=== PATIENT | male | born 1930 | race Caucasian/White ===

== ENCOUNTER 2017-09-24 07:32 | Emergency (ER) | payer MEDICARE ==
[~2017-09-24] VITALS: Ht 182.9 cm; Wt 86.0 kg
[~2017-09-24 07:32] MED LIST: AMIODARONE; ASPIRIN; PLAVIX; [UNRECOGNIZED DRUG - OTHER]
[2017-09-24] MEDS ORDERED: BICA50TA2 PO (07:43)
[2017-09-24] MEDS ORDERED: SOTA80TA PO (07:43)
[2017-09-24] MEDS ORDERED: RAMI2.5C6 PO (07:43)
[2017-09-24] MEDS ORDERED: NITROGLYCERIN OINT 1GM/INCH UDPKT TD ONE (08:00)
[2017-09-24] MEDS ORDERED: ASPIRIN 81MG TABLET PO ONE (08:00)
[2017-09-24] MEDS ORDERED: METOPROLOL TARTRATE 5MG/5ML VIAL IV ONE (08:00)
[2017-09-24 08:33] LABS: BASOPHILS % 0.5 % (0.0-2.0); LYMPHOCYTES % 9.4 % (20.0-50.0); MEAN CORPUSCULAR HEMOGLOBIN 32.1 pg (28.0-32.0); MEAN CORPUSCULAR VOLUME 94.5 fL (80.0-94.0); MONOCYTES % 9.3 % (2.0-8.0); NEUTROPHILS % 79.8 % (40.0-76.0); PARTIAL THROMBOPLASTIN TIME 26.1 sec (23.4-31.0); PLATELET 138 x1000/uL (130-400); PROTHROMBIN TIME 10.2 sec (9.4-11.6); RED BLOOD CELL COUNT 4.66 mill/uL (4.7-6.1); RED CELL DISTRIBUTION WIDTH 13.3 % (11.6-14.6)
[2017-09-24 08:43] LABS: CARBON DIOXIDE 27 mEq/L (21-32); CHLORIDE 108 mEq/L (98-107); TROPONIN I < 0.02 ng/mL (0.00-0.04)
[2017-09-24 09:25] LABS: GLUCOSE URINE NEGATIVE (NEGATIVE); KETONES URINE NEGATIVE (NEGATIVE); LEUKOCYTE ESTERASE URINE NEGATIVE (NEGATIVE); NITRITE URINE NEGATIVE (NEGATIVE); OCCULT BLOOD URINE NEGATIVE (NEGATIVE); PH URINE 6.5 (4.5-8.0); PROTEIN URINE NEGATIVE (NEGATIVE); SPECIFIC GRAVITY URINE 1.016 (1.005-1.030)
[2017-09-24 09:27] LABS: CLARITY URINE CLEAR (CLEAR); COLOR URINE PALE YELLOW (YELLOW)
[2017-09-24 13:34] VITALS: BP 144/74
== END 2017-09-24 13:45 | disposition left against medical advice (07) ==
LOC: ER 08:38 → EDBEDREQ 09:36 → ENRESERV 13:06 → CANRESERV 13:06 → ER 13:45 → CANBEDREQ 16:22
DX: R07.89 Other chest pain (principal); I25.10 Atherosclerotic heart disease of native coronary artery without angina pectoris; I10 Essential (primary) hypertension; Z79.82 Long term (current) use of aspirin; Z85.46 Personal history of malignant neoplasm of prostate
CPT/HCPCS: 36415; 71010; 80053; 81003; 83880; 84484; 85025; 85610; 85730; 87086; 93005; 99285

== ENCOUNTER 2019-05-30 07:13 | Inpatient (IN) | payer MEDICARE ==
[~2019-05-30] VITALS: Ht 182.9 cm; Wt 81.6 kg
[~2019-05-30 07:13] MED LIST changes: +BICA50TA48 PO; +RAMI2.5C6 PO; +SOTA80TA PO
[2019-05-30 07:45] LABS: BASOPHILS % 0.4 % (0.0-2.0); EOSINOPHILS % 1.5 % (0.0-5.0); HEMATOCRIT. 45.3 % (42.0-52.0); HEMOGLOBIN. 15.1 g/dL (14.0-18.0); MEAN CORPUSCULAR VOLUME 95.5 fL (80.0-94.0); MEAN PLATELET VOLUME 10.6 fl (7.4-10.4); MONOCYTES % 9.3 % (2.0-8.0); NEUTROPHILS % 77.8 % (40.0-76.0); PLATELET 163 x1000/uL (130-400); RED BLOOD CELL COUNT 4.74 mill/uL (4.7-6.1); RED CELL DISTRIBUTION WIDTH 13.8 % (11.6-14.6)
[2019-05-30 07:52] LABS: CHLORIDE 107 mEq/L (98-107)
[2019-05-30] MEDS ORDERED: ASPIRIN 81MG TABLET PO ONE (08:00)
[2019-05-30] MEDS ORDERED: CLOPIDOGREL 75MG TABLET PO ONE (08:00)
[2019-05-30] MEDS ORDERED: ENALAPRIL 2.5MG/2ML VIAL 2ML IV ONE (08:00)
[2019-05-30] MEDS ORDERED: ENALAPRIL 1.25MG/ML VIAL 1ML IV SCH (08:11)
[2019-05-30] MEDS ORDERED: ONDANSETRON HCL 4MG/2ML INJ IV PRN (12:00)
[2019-05-30] MEDS ORDERED: GUAIFENESIN 200MG/10ML SUGAR FREE UDC PO PRN (12:00)
[2019-05-30] MEDS ORDERED: NITROGLYCERIN 0.4MG TABLET SL SL PRN (12:00)
[2019-05-30] MEDS ORDERED: DOCUSATE SODIUM 100MG CAPSULE PO PRN (12:00)
[2019-05-30] MEDS ORDERED: MAGNESIUM/ALUMINUM HYDROXIDE/SIMETHICONE 30ML UDC PO PRN (12:00)
[2019-05-30] MEDS ORDERED: MORPHINE SULFATE 2 MG/ML CPJ (NOT FOR IM USE) IV PRN (12:00)
[2019-05-30] MEDS ORDERED: ACETAMINOPHEN 325MG TABLET PO PRN (12:00)
[2019-05-30] MEDS ORDERED: CLONIDINE 0.1MG TABLET PO PRN ×2 (12:00→15:15)
[2019-05-30] MEDS ORDERED: HYDROCODONE/ACETAMINOPHEN 5/325MG TABLET PO PRN (12:00)
[2019-05-30 12:27] VITALS: BP 180/71
[2019-05-30 12:30] VITALS: BP 180/71
[2019-05-30] MEDS: AMLODIPINE 10MG TABLET PO SCH (13:00)
[2019-05-30] MEDS: ENOXAPARIN 40MG/0.4ML SYR SUBCUT SCH ×2 (13:00→13:50)
[2019-05-30] MEDS ORDERED: CHOL50004 MT (13:07)
[2019-05-30] MEDS ORDERED: LANS15CA12 MT (13:07)
[2019-05-30] MEDS ORDERED: FISH MT (13:08)
[2019-05-30] MEDS ORDERED: HYDRALAZINE 20MG/ML VIAL IV PRN ×2 (13:45→14:30)
[2019-05-30 16:00] VITALS: BP 122/60
[2019-05-30 17:16] LABS: CREATINE KINASE 56 IU/L (39-308)
[2019-05-30 17:19] LABS: CREATINE KINASE MB FRACTION 1.1 ng/mL (0.5-3.6)
[2019-05-30] MEDS: ASPIRIN 81MG EC TABLET PO SCH (17:33)
[2019-05-30] MEDS: NITROGLYCERIN OINT 1GM/INCH UDPKT TD SCH (17:35)
[2019-05-30 20:00] VITALS: BP 130/52
[2019-05-31] VITALS: BP 146/66
[2019-05-31] MEDS: NITROGLYCERIN OINT 1GM/INCH UDPKT TD SCH ×2 (00:23→06:26)
[2019-05-31 00:37] LABS: CREATINE KINASE 53 IU/L (39-308); CREATINE KINASE MB FRACTION 1.3 ng/mL (0.5-3.6)
[2019-05-31 04:00] VITALS: BP 113/47
[2019-05-31 08:00] VITALS: BP 126/64
[2019-05-31] MEDS: ENOXAPARIN 40MG/0.4ML SYR SUBCUT SCH (09:00)
[2019-05-31] MEDS ORDERED: CLOPIDOGREL 75MG TABLET PO SCH (09:00)
[2019-05-31] MEDS: ASPIRIN 81MG EC TABLET PO SCH (09:02)
[2019-05-31] MEDS: AMLODIPINE 10MG TABLET PO SCH (09:02)
[2019-05-31 09:45] LABS: BASOPHILS % 0.5 % (0.0-2.0); EOSINOPHILS % 0.4 % (0.0-5.0); HEMATOCRIT. 40.7 % (42.0-52.0); HEMOGLOBIN. 13.9 g/dL (14.0-18.0); LYMPHOCYTES % 10.4 % (20.0-50.0); MEAN CORPUSCULAR VOLUME 93.6 fL (80.0-94.0); MONOCYTES % 9.3 % (2.0-8.0); NEUTROPHILS % 79.4 % (40.0-76.0); PLATELET 162 x1000/uL (130-400); RED BLOOD CELL COUNT 4.35 mill/uL (4.7-6.1); RED CELL DISTRIBUTION WIDTH 13.6 % (11.6-14.6)
[2019-05-31 09:56] LABS: CHLORIDE 107 mEq/L (98-107)
[2019-05-31 10:05] LABS: LDL CHOLESTEROL 76 mg/dL (5-100)
[2019-05-31 10:08] LABS: HDL CHOLESTEROL 45 mg/dL (40-59)
[2019-05-31 12:00] VITALS: BP 136/66
[2019-05-31 12:39] LABS: CREATINE KINASE 54 IU/L (39-308)
[2019-05-31 12:40] LABS: CREATINE KINASE MB FRACTION < 1.0 ng/mL (0.5-3.6)
[2019-05-31 12:56] VITALS: BP 136/66
== END 2019-05-31 13:30 | disposition home or self-care (01) | DRG 303 ==
LOC: ER 07:46 → 5WST 08:04 → EDBEDREQTM 08:10 → EDBEDREQ 08:10 → ENRESERV 10:51 → SUPCPDRO 11:57
PROVIDERS: ADMIT Hospitalist; ATTEND Hospitalist
DX: I25.119 Atherosclerotic heart disease of native coronary artery with unspecified angina pectoris (principal); E78.5 Hyperlipidemia, unspecified; I11.0 Hypertensive heart disease with heart failure; R31.9 Hematuria, unspecified; I35.0 Nonrheumatic aortic (valve) stenosis; I50.9 Heart failure, unspecified; K21.9 Gastro-esophageal reflux disease without esophagitis; Z79.02 Long term (current) use of antithrombotics/antiplatelets; Z79.82 Long term (current) use of aspirin; Z91.14 Patient's other noncompliance with medication regimen; Z91.19 Patient's noncompliance with other medical treatment and regimen; Z79.899 Other long term (current) drug therapy; Z95.5 Presence of coronary angioplasty implant and graft
CPT/HCPCS: 36415; 71045; 80061; 82550; 82553; 83735; 83880; 84443; 84484; 93005; 93306; 93970; 96374; 99285; J0360; J1650; J3490

== ENCOUNTER 2021-08-06 16:50 | Inpatient (IN) | payer BC, MEDICAID ==
[~2021-08-06] VITALS: Ht 182.9 cm; Wt 65.8 kg
[~2021-08-06 16:50] MED LIST changes: -AMIODARONE; +CHOL50004 MT; +FISH MT; +LANS15CA12 MT; +METOPROLOL; +NITRO; -[UNRECOGNIZED DRUG - OTHER]
[2021-08-06 17:32] LABS: BASOPHILS % 0.5 % (0.0-2.0); EOSINOPHILS % 0.7 % (0.0-5.0); HEMATOCRIT. 32.9 % (42.0-52.0); HEMOGLOBIN. 10.8 g/dL (14.0-18.0); LYMPHOCYTES % 17.3 % (20.0-50.0); MEAN CORPUSCULAR HEMOGLOBIN 28.8 pg (28.0-32.0); MEAN CORPUSCULAR VOLUME 87.9 fL (80.0-94.0); MEAN PLATELET VOLUME 10.1 fl (7.4-10.4); MONOCYTES % 10.5 % (2.0-8.0); PLATELET 143 x1000/uL (130-400); RED BLOOD CELL COUNT 3.75 mill/uL (4.7-6.1); RED CELL DISTRIBUTION WIDTH 17.7 % (11.6-14.6)
[2021-08-06 17:38] LABS: CHLORIDE 102 mEq/L (98-107)
[2021-08-06 17:40] LABS: INR 1.1
[2021-08-07] VITALS (20 sets, daily range): BP systolic 112–152; BP diastolic 40–78
[2021-08-07] MEDS ORDERED: DEXT 5%/0.45% NACL 1000ML 1,000 ML IV SCH (05:00)
[2021-08-07 07:47] LABS: CREATINE KINASE MB FRACTION 2.4 ng/mL (0.5-3.6)
[2021-08-07] MEDS ORDERED: LIDOCAINE HCL 1% 20ML VIAL (Pyxis) INJ ONE ×2 (13:02→13:14)
[2021-08-07] MEDS: LEVOTHYROXINE SODIUM 50MCG TABLET PO SCH (13:02)
[2021-08-07] MEDS ORDERED: PANT40TA51 MT (13:46)
[2021-08-07] MEDS ORDERED: AMI2 MT (13:46)
[2021-08-07] MEDS ORDERED: ATOR40TA70 MT (13:46)
[2021-08-07] MEDS ORDERED: ASCO100T12 PO (13:46)
[2021-08-07] MEDS ORDERED: SPIR25TA PO (13:46)
[2021-08-07] MEDS ORDERED: APIX2.5T MT (13:46)
[2021-08-07] MEDS ORDERED: CHOL-36 (13:46)
[2021-08-07] MEDS ORDERED: FURO-152 MT (13:46)
[2021-08-07 15:04] LABS: T4 FREE 1.05 ng/dL (0.76-1.46)
[2021-08-07] MEDS ORDERED: ONDANSETRON HCL 4MG/2ML INJ IV PRN (16:15)
[2021-08-07] MEDS ORDERED: ACETAMINOPHEN 325MG TABLET PO PRN (16:15)
[2021-08-07 18:05] LABS: CREATINE KINASE MB FRACTION 2.4 ng/mL (0.5-3.6)
[2021-08-07] MEDS ORDERED: TRAMADOL 50MG TABLET PO PRN (20:00)
[2021-08-07] MEDS ORDERED: NALOXONE HCL 0.4MG/ML VIAL IV PRN (20:00)
[2021-08-07 23:42] LABS: CREATINE KINASE MB FRACTION 3.9 ng/mL (0.5-3.6)
[2021-08-08] VITALS (55 sets, daily range): BP systolic 107–163; BP diastolic 38–90
[2021-08-08 06:13] LABS: BASOPHILS % 0.7 % (0.0-2.0); EOSINOPHILS % 0.3 % (0.0-5.0); HEMATOCRIT. 28.2 % (42.0-52.0); HEMOGLOBIN. 9.6 g/dL (14.0-18.0); LYMPHOCYTES % 8.6 % (20.0-50.0); MEAN CORPUSCULAR HEMOGLOBIN 29.2 pg (28.0-32.0); MEAN CORPUSCULAR VOLUME 85.7 fL (80.0-94.0); MEAN PLATELET VOLUME 9.9 fl (7.4-10.4); MONOCYTES % 12.6 % (2.0-8.0); NEUTROPHILS % 77.8 % (40.0-76.0); PLATELET 110 x1000/uL (130-400); RED BLOOD CELL COUNT 3.29 mill/uL (4.7-6.1); RED CELL DISTRIBUTION WIDTH 17.5 % (11.6-14.6)
[2021-08-08] MEDS: SODIUM CHLORIDE 0.45% 1,000 ML IV SCH (09:42)
[2021-08-08] MEDS: LEVOTHYROXINE SODIUM 50MCG TABLET PO SCH (09:44)
[2021-08-08] MEDS ORDERED: DOPAMINE 400MG/250ML PREMIX 250 ML IV ONE (14:34)
[2021-08-08] MEDS ORDERED: NOREPINEPHRINE BITARTRATE 1MG/ML 4ML IV ONE ×2 (14:34→14:54)
[2021-08-08] MEDS ORDERED: LIDOCAINE HCL 1% 20ML VIAL (Pyxis) INJ ONE (15:00)
[2021-08-08] MEDS ORDERED: GENTAMICIN/NS IRRIGATION 500 ML IR ONE (15:03)
[2021-08-08] MEDS ORDERED: GLYCOPYRROLATE 0.2 MG/ML 2ML VIAL ONE ×2 (15:06→15:30)
[2021-08-08] MEDS ORDERED: CEFAZOLIN SODIUM 1000MG/VIAL ONE (15:17)
[2021-08-08] MEDS ORDERED: DEXAMETHASONE 4MG/ML 1ML VIAL ONE (15:17)
[2021-08-08] MEDS ORDERED: ONDANSETRON HCL 4MG/2ML INJ ONE (15:17)
[2021-08-08] MEDS ORDERED: MORPHINE SULFATE 2 MG/ML CPJ (NOT FOR IM USE) IV PRN (16:30)
[2021-08-08] MEDS ORDERED: HYDROCODONE/ACETAMINOPHEN 5/325MG TABLET PO PRN (16:30)
[2021-08-08] MEDS ORDERED: CEFAZOLIN 1000MG PREMIX 50 ML IV SCH (17:00)
[2021-08-08] MEDS: CEFAZOLIN 1000MG PREMIX 50 ML IV SCH (21:45)
[2021-08-08] MEDS ORDERED: CEFAZOLIN SODIUM 1000MG/VIAL IV SCH (22:00)
[2021-08-09] VITALS (37 sets, daily range): BP systolic 100–144; BP diastolic 53–97
[2021-08-09] MEDS: SODIUM CHLORIDE 0.45% 1,000 ML IV SCH (02:32)
[2021-08-09] MEDS: CEFAZOLIN 1000MG PREMIX 50 ML IV SCH ×2 (05:47→14:45)
[2021-08-09 06:29] LABS: CHLORIDE 102 mEq/L (98-107)
[2021-08-09 06:32] LABS: HEMATOCRIT. 30.2 % (42.0-52.0); HEMOGLOBIN. 9.9 g/dL (14.0-18.0); MEAN CORPUSCULAR HEMOGLOBIN 28.6 pg (28.0-32.0); MEAN CORPUSCULAR VOLUME 87.5 fL (80.0-94.0); RED BLOOD CELL COUNT 3.45 mill/uL (4.7-6.1); RED CELL DISTRIBUTION WIDTH 17.1 % (11.6-14.6)
[2021-08-09 08:21] LABS: MEAN PLATELET VOLUME 10.8 fl (7.4-10.4); PLATELET ESTIMATE DECREASED
[2021-08-09 08:22] LABS: PLATELET 106 x1000/uL (130-400)
[2021-08-09] MEDS: LEVOTHYROXINE SODIUM 50MCG TABLET PO SCH (09:13)
[2021-08-09] MEDS ORDERED: SOTALOL HCL 80MG TABLET PO SCH (17:00)
== END 2021-08-09 19:30 | disposition home health service (06) | DRG 242 ==
LOC: ER 16:50 → 3WST 19:43 → ENRESERV 22:47 → CVICU 08-07 18:47
PROVIDERS: ADMIT Internal Medicine; ATTEND Internal Medicine Pulmonary Disease
PROC: 05H433Z Insertion of Infusion Device into Left Innominate Vein, Percutaneous Approach (ICD-10-PCS; 2021-08-07)
PROC: B54NZZA Ultrasonography of Left Upper Extremity Veins, Guidance (ICD-10-PCS; 2021-08-07)
PROC: 0JH606Z Insertion of Pacemaker, Dual Chamber into Chest Subcutaneous Tissue and Fascia, Open Approach (ICD-10-PCS; principal; 2021-08-08)
PROC: 02HK3JZ Insertion of Pacemaker Lead into Right Ventricle, Percutaneous Approach (ICD-10-PCS; 2021-08-08)
PROC: 02H63JZ Insertion of Pacemaker Lead into Right Atrium, Percutaneous Approach (ICD-10-PCS; 2021-08-08)
DX: I49.5 Sick sinus syndrome (principal); I50.31 Acute diastolic (congestive) heart failure; I44.0 Atrioventricular block, first degree; G90.8 Other disorders of autonomic nervous system; D64.9 Anemia, unspecified; I35.0 Nonrheumatic aortic (valve) stenosis; I11.0 Hypertensive heart disease with heart failure; I25.10 Atherosclerotic heart disease of native coronary artery without angina pectoris; E03.9 Hypothyroidism, unspecified; K21.9 Gastro-esophageal reflux disease without esophagitis; Z20.822 Contact with and (suspected) exposure to COVID-19; I73.9 Peripheral vascular disease, unspecified; R53.81 Other malaise; E78.5 Hyperlipidemia, unspecified; I48.91 Unspecified atrial fibrillation; Z79.02 Long term (current) use of antithrombotics/antiplatelets; Z93.1 Gastrostomy status; Z79.899 Other long term (current) drug therapy; Z79.01 Long term (current) use of anticoagulants; Z86.73 Personal history of transient ischemic attack (TIA), and cerebral infarction without residual deficits; Z74.01 Bed confinement status; Z95.5 Presence of coronary angioplasty implant and graft; I25.2 Old myocardial infarction
CPT/HCPCS: 33208; 36415; 71045; 76937; 80048; 80053; 82550; 82553; 82962; 83735; 83880; 84439; 84443; 84481; 84484; 85025; 86850; 86900; 87426; 92610; 93005; 93306; 93970; 99291; A4565; A6261; C1725; C1785; C1898; J0690; J1100; J1265; J2405; J3490